=== PATIENT | female | born 1985 | race Two or more races ===

== ENCOUNTER 2020-04-13 11:40 | Emergency (ER) | payer OTHER ==
[~2020-04-13] VITALS: Ht 172.7 cm; Wt 90.7 kg
[2020-04-13 12:14] VITALS: BP 141/76
[2020-04-13] MEDS ORDERED: ETOMIDATE (2MG/ML) 20ML VIAL IV ONE (12:15)
[2020-04-13] MEDS ORDERED: ONDANSETRON HCL 4 MG/2 ML VIAL IV ONE (12:45)
[2020-04-13] MEDS ORDERED: MORPHINE SULFATE 4 MG/ML SYR/VIAL IV ONE (12:45)
== END 2020-04-13 13:41 ==
LOC: ER 11:40 → EEVIPCON 11:40 → ER 13:41
DX: S43.005A Unspecified dislocation of left shoulder joint, initial encounter (principal); W01.0XXA Fall on same level from slipping, tripping and stumbling without subsequent striking against object, initial encounter; Y93.89 Activity, other specified; Y92.89 Other specified places as the place of occurrence of the external cause; Y99.8 Other external cause status
CPT/HCPCS: 23650; 73020; 73030; 96374; 96375; 99285; J2270; J2405